=== PATIENT | male | born 1965 | race Caucasian/White ===

== ENCOUNTER 2024-09-01 08:34 | Outpatient (REF) | payer BC, SELFPAY ==
[2024-09-01 11:15] LABS: MANUAL DIFF FLAG NO
[2024-09-01 11:16] LABS: Basophils Absolute Auto 0.1 X10*3/uL (0.0-0.2); Basophils Percent Auto 1.3 % (0-2); Eosinophils Absolute Auto 0.2 X10*3/uL (0.0-0.4); Eosinophils Percent Auto 4.4 % (0-4); Hematocrit 43.7 % (42.0-52.0); Hemoglobin 15.5 g/dl (14.0-18.0); Imm Gran Abs Auto 0.02 X10*3/uL (0.00-0.03); Imm Gran Pct Auto 0.4 % (0.0-0.4); Lymphocytes Absolute Auto 1.7 X10*3/uL (1.2-4.9); Lymphocytes Percent Auto 31.9 % (20-40); Mean Corpuscular HGB Conc 35.5 g/dl (31.0-36.0); Mean Corpuscular Hemoglobin 30.5 pg (27.0-33.0); Mean Platelet Volume 10.1 fL (9.4-12.4); Monocytes Absolute Auto 0.4 X10*3/uL (0.1-1.2); Neutrophils Absolute Auto 2.9 x10*3/uL (2.0-8.3); Platelet Count 222 X10*3/uL (160-400); Red Blood Count 5.08 X10*6/uL (4.60-5.80); Red Cell Distribution Width 13.1 % (11.0-16.0); White Blood Count 5.4 X10*3/uL (4.8-10.8)
[2024-09-01 11:33] LABS: Estimated Average Glucose 94 mg/dL; Hemoglobin A1C 121.4947 umol/L; Hemoglobin A1c % 4.9 % (<6.0); Total Hemoglobin (HGBA1C) 3977.7666 umol/L
[2024-09-01 11:52] LABS: Alanine Aminotransferase 17 U/L (0-40); Albumin Level 4.2 g/dL (3.5-5.0); Alkaline Phosphatase 47 U/L (39-117); Anion Gap 9 (12-20); Aspartate Amino Transferase 21 U/L (5-37); Bilirubin Direct 0.3 mg/dL (0.0-0.5); Bilirubin Total 0.8 mg/dL (0.0-1.0); Blood Urea Nitrogen 18 mg/dL (9-16); Calcium 9.1 mg/dL (8.4-10.2); Carbon Dioxide 25 mmol/L (22-29); Chloride 110 mmol/L (96-108); Cholesterol 178 mg/dL (<200); Estimated Glomerular Filt Rate > 60; Glucose Random 96 mg/dL (60-115); HDL Cholesterol 73 mg/dL (>40); LDL Cholesterol Calculated 89 mg/dL (<100); Magnesium 2.1 mg/dL (1.6-2.6); Potassium 4.2 mmol/L (3.3-5.1); Sodium 140 mmol/L (135-145); Total Protein 7.4 g/dL (6.5-8.0); Triglycerides 83 mg/dL (<150)
[2024-09-01 11:54] LABS: TSH reflex Free T4 2.87 uIU/mL (0.32-4.0); Vitamin D 25-OH Total 41.3 ng/mL (>30)
[2024-09-01 12:11] LABS: Folate 9.4 ng/mL (> or = 4.0); Vitamin B12 395 pg/mL (200-900)
== END 2024-09-01 08:35 | disposition home or self-care (01) ==
LOC: HO.HMGCLDS 08:34
PROVIDERS: PCP Internal Medicine; Visit Provider Physician Assistant Medical
DX: Z00.00 Encounter for general adult medical examination without abnormal findings (principal); Z12.5 Encounter for screening for malignant neoplasm of prostate; Z13.1 Encounter for screening for diabetes mellitus; Z13.220 Encounter for screening for lipoid disorders; Z13.0 Encounter for screening for diseases of the blood and blood-forming organs and certain disorders involving the immune mechanism; Z13.29 Encounter for screening for other suspected endocrine disorder
CPT/HCPCS: 36415; 80053; 80061; 82248; 82306; 82607; 82746; 83036; 83735; 84153; 84443; 85025

== ENCOUNTER 2024-09-19 12:54 | Outpatient (AMB) | payer BC, SELFPAY ==
--- NOTE | 2024-09-19 12:57 | MHC.PC.OV ---
Vital Signs 09/19/24 12:59 Height 6 ft 3 in Weight 250 lb BMI 31.2 BP 130/84 Blood Pressure Location Rt brachial Pulse 73 Pulse Source Pulse Oximeter Temp 97.3 F Pulse Oximetry (%) 98 Intake Visit Reasons: physical Intake Note: no other issues Allergies No Known Allergies Allergy (Verified 09/19/24 13:30) Medication List - Last Reconciled 09/19/24 by Wanda Whitten PA-C alprazolam 0.5 mg PO BID PRN sertraline 75 mg PO DAILY [facility] Medical History (Updated 09/19/24 @ 13:33 by Wanda Whitten PA-C) Obesity (BMI 30.0-34.9) Annual physical exam Depression Anxiety Surgical History History of colonoscopy (~11/24/22) Physical exam (Primary Care) Vital Signs: Last Vital Signs Temp 97.3 F 09/19/24 12:59 Pulse 73 09/19/24 12:59 BP 130/84 09/19/24 12:59 Pulse Ox 98 09/19/24 12:59 Care Plan Goal for BP management: 130/80 at goal BMI result Body Mass Index 31.2 BMI Assessment/Plan discussion: High BMI High, discussed plan: lifestyle, weight reduction, dietary, physical activity and alcohol moderation Coding Level of Care Code New Pt Prev Care 40-64y(80183) Diagnoses Annual physical exam Z00.00 Depression F32.A Anxiety F41.9 Obesity (BMI 30.0-34.9) E66.811 Assessment & Plan Assessment & Plan (1) Annual physical exam: Code(s): Z00.00 - Encounter for general adult medical examination without abnormal findings Category: Medical Plan: Patient to return in 1 year for next annual physical. Patient to have fasting blood work before his next annual physical. (2) Depression: Code(s): F32.A - Depression, unspecified Category: Medical Plan: Patient to continue sertraline 75 mg daily and Xanax 0.5 mg b.i.d. p.r.n. as needed. Condition is chronic and stable continue to monitor. (3) Anxiety: Code(s): F41.9 - Anxiety disorder, unspecified Category: Medical Plan: Patient to continue sertraline 75 mg daily and Xanax 0.5 mg b.i.d. p.r.n. as needed. Condition is chronic and stable continue to monitor. (4) Obesity (BMI 30.0-34.9): Code(s): E66.811 - Obesity, class 1 Category: Medical Plan: Patient to improve his diet and exercise regimen. Condition is chronic and stable continue to monitor. Plan Plan The patient will discontinue clonazepam due to lack of use, while maintaining sertraline 75 mg daily to manage his anxiety and depression effectively. He is encouraged to continue his exercise and dietary habits, which have positively impacted his health, evident by outstanding lab results. Follow-up for a colonoscopy in 2027 remains on schedule as per the five-year surveillance plan. Annual blood work is planned to assess CBC, CMP, CRP, lipid panel, and PSA levels, essential for ongoing health maintenance and monitoring. There are no current needs for medication refills, and routine follow-ups will continue to ensure comprehensive preventative care. Orders: Orders Complete Blood Count Auto Diff Today Z00.00 - Encounter for general adult medical examination without abnormal findings Comprehensive [place]. Panel Fast Today Z00.00 - Encounter for general adult medical examination without abnormal findings Lipid Panel Today Z00.00 - Encounter for general adult medical examination without abnormal findings Liver Panel Today Z00.00 - Encounter for general adult medical examination without abnormal findings Vitamin B1 Today Z00.00 - Encounter for general adult medical examination without abnormal findings Vitamin D 25-OH Total Today Z00.00 - Encounter for general adult medical examination without abnormal findings Vitamin B12 and Folate Today Z00.00 - Encounter for general adult medical examination without abnormal findings C Reactive Protein Today Z00.00 - Encounter for general adult medical examination without abnormal findings Magnesium Today Z00.00 - Encounter for general adult medical examination without abnormal findings Hemoglobin A1c Today Z00.00 - Encounter for general adult medical examination without abnormal findings TSH reflex Free T4 Today Z00.00 - Encounter for general adult medical examination without abnormal findings PSA,Total (Free>4and<10) Today Z00.00 - Encounter for general adult medical examination without abnormal findings Patient Instructions: Patient Instructions - Discontinue clonazepam as it is no longer needed. - Continue taking sertraline 75 mg daily. - Maintain your current exercise routine and dietary habits. - Schedule your next colonoscopy for 2027. - Plan for annual blood work to monitor health metrics. - Follow up regularly with our office for routine check-ups. Scribe Plan - Not visible on output: History of Present Illness The patient is a 59-year-old male presenting for an annual physical examination. He has a significant past medical history of depression and anxiety. Although he has a prescription for clonazepam 0.25 mg, he reports minimal usage and primarily manages his anxiety with sertraline 75 mg daily, which was an increased dosage from 50 mg as advised by his previous physician. He has been prescribed Xanax but notes infrequent usage and has taken none this calendar year. The patient has recently elected to discontinue clonazepam entirely. He has undergone a colonoscopy in 2022 and adheres to a five-year follow-up schedule. His recent laboratory evaluations revealed a normal complete blood count and cholesterol levels. Despite a slightly elevated chloride level and mild dehydration, attributed to fasting, his blood work was predominantly normal, including triglycerides and PSA levels. The patient attributes these positive findings to conscious lifestyle choices, including improvements in diet and exercise. 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 Oriented X3. No acute distress. Head: Normal external exam. Normocephalic. Atraumatic. Eyes: Pupils are equal, round, and reactive to light. Extraocular movements intact. Conjunctiva and sclera normal. Eyelids normal. Ears: External auditory canal normal. Tympanic membranes normal. Throat: Pharynx normal. Uvula midline. Moist mucous membranes. Neck: Normal inspection. Neck supple. Full range of motion. No adenopathy. Thyroid Normal. No meningeal signs. No neck mass noted. Cardiovascular: Normal heart rate and rhythm. Heart sound normal. No murmurs noted. Pulses normal throughout. Respiratory: No respiratory distress. Painless inspiration. Breath sounds normal. No wheezes/rales/rhonchi noted. Chest nontender. No accessory muscle usage noted or decreased air movement noted. Abdomen: Soft and nontender. Bowel sounds normal in all 4 quadrants. No distention noted. No organomegaly noted. No visible injury noted. Back: No costovertebral angle tenderness. Full range of motion noted. Skin: Skin warm and dry. Normal skin color. Normal skin turgor. No rashes/lesions/lacerations noted. Extremities: No lower extremity edema. Extremities exhibit normal range of motion. Extremities nontender. Neuro: Oriented X 3. No motor deficit. No sensory deficit. Reflexes normal. Results - Labs: Normal complete blood count, normal platelet count, normal triglycerides, normal cholesterol level, slightly elevated chloride attributed to fasting, normal PSA level Plan The patient will discontinue clonazepam due to lack of use, while maintaining sertraline 75 mg daily to manage his anxiety and depression effectively. He is encouraged to continue his exercise and dietary habits, which have positively impacted his health, evident by outstanding lab results. Follow-up for a colonoscopy in 2027 remains on schedule as per the five-year surveillance plan. Annual blood work is planned to assess CBC, CMP, CRP, lipid panel, and PSA levels, essential for ongoing health maintenance and monitoring. There are no current needs for medication refills, and routine follow-ups will continue to ensure comprehensive preventative care. Patient was informed and verbally consented to the use of an ambient scribe for clinic note documentation during this visit. Discussion Notes During the visit, I discussed with the patient the cessation of clonazepam as he reports no usage of the medication. The continuation of sertraline 75 mg was agreed upon, given its effectiveness in managing his anxiety and depression. We addressed his exercise and diet routines, which have positively influenced his health metrics, especially his cholesterol and triglycerides. I informed the patient that his colonoscopy schedule remains on track for 2027 as per his current five-year plan. Lab work confirmed excellent results, and we will repeat comprehensive blood work annually, including PSA, CBC, CMP, and lipid panel. No immediate interventions or medication refills are necessary, and regular health check-ups will ensure continued wellbeing. Patient Instructions - Discontinue clonazepam as it is no longer needed. - Continue taking sertraline 75 mg daily. - Maintain your current exercise routine and dietary habits. - Schedule your next colonoscopy for 2027. - Plan for annual blood work to monitor health metrics. - Follow up regularly with our office for routine check-ups.
[2024-09-19 12:59] VITALS: BP 130/84; PULSE 73; TEMP 36.3; O2SAT 98; BMI 31.2
== END 2024-09-19 13:32 | disposition home or self-care (01) ==
LOC: HO.HMCSH 12:54
PROVIDERS: PCP Internal Medicine; Visit Provider Physician Assistant Medical
DX: Z00.00 Encounter for general adult medical examination without abnormal findings (principal); F32.A Depression, unspecified; F41.9 Anxiety disorder, unspecified; E66.811 Obesity, class 1

== ENCOUNTER → 2024-09-19 12:54 | Outpatient (BNVA) | payer BC, SELFPAY | PROVIDERS: PCP Internal Medicine; Visit Provider Physician Assistant Medical ==